=== PATIENT | male | born 1955 | race Caucasian/White ===

== ENCOUNTER 2018-11-25 11:02 | Inpatient (IN) | payer OTHER ==
[~2018-11-25] VITALS: Ht 185.4 cm; Wt 99.6 kg
--- NOTE | ~2018-11-25 | P ---
[facility] [place] [address] PROCEDURE REPORT Name: SHELLY HARVEY Room #: 246-P [facility] IN M.R.#: [id number] Admission: 11/25/18 Attend Phys: Albertina Perez MD Discharge: Date of : 55 Report #: [id number] THIS REPORT FOR: //name// CC: JONATHAN BILLINGS Physician staff Albertina Perez PROCEDURE: Cardioversion. PREOPERATIVE DIAGNOSIS: Atrial flutter. POSTOPERATIVE DIAGNOSIS: Atrial flutter. HISTORY OF PRESENT ILLNESS: The patient is a 62-year-old presenting to the ER with worsening shortness of breath, found to be in atrial flutter with rapid ventricular response. Attempts at rate control were unsuccessful in the ER and he developed symptomatic hypotension with systolics in the 70s. He therefore underwent emergent cardioversion. Prior to the cardioversion, an echo was performed showing EF of 20% and no effusion. DESCRIPTION OF PROCEDURE: The patient underwent informed consent. He was then sedated by the Anesthesiology service. I then performed a 150-joule synchronized cardioversion with moravian of sinus rhythm. There were no procedural complications. CONCLUSIONS: Successful emergent DC cardioversion for atrial flutter with cardiogenic shock. By: 1356 14 Quinton Pal MD /nt
--- NOTE | ~2018-11-25 | HC ---
[facility] [place] [address] CONSULTATION Name: SHELLY HARVEY Room #: 246-P [facility] IN M.R.#: [id number] Admission: 11/25/18 Attend Phys: Albertina Perez MD Discharge: Date of : 55 Report #: [id number] THIS REPORT FOR: //name// CC: JONATHAN BILLINGS Physician staff Albertina Perez ELECTROPHYSIOLOGY CONSULTATION HISTORY OF PRESENT ILLNESS: The patient is a 62-year-old with history of coronary artery disease, status post CABG, who recently saw Dr. Vasquez with increased palpitations and shortness of breath and was found to be in typical flutter. He was started on Eliquis, and his beta derek dose was increased. He called in today saying that he was feeling worse with increased fatigue and shortness of breath and also some nausea and vomiting, which is new onset. He had some labs performed in clinic the other day on Wednesday, which were within normal limits. Today, he presents to the ER and he is in typical atrial flutter with a rate in the 120s. He also has multiple laboratory abnormalities including elevated liver enzymes and acute renal failure. PAST MEDICAL HISTORY: As above. SOCIAL HISTORY: Does not smoke. FAMILY HISTORY: Noncontributory. ALLERGIES: None. MEDICATIONS: Have been reviewed and include statin, Eliquis, atenolol. REVIEW OF SYSTEMS: A 12-point review of systems was performed and was negative. PHYSICAL EXAMINATION: GENERAL: He denies fevers, chills. HEENT: Denies blurred vision or sore throat. CARDIOVASCULAR: No chest pain. PULMONARY: No productive cough. GASTROINTESTINAL: He had some nausea, vomiting and no abdominal pain. GENITOURINARY: No dysuria. MUSCULOSKELETAL: No myalgias or arthralgias. ENDOCRINE: No heat or cold intolerance. NEUROLOGIC: No focal weakness or stroke-like symptoms. PHYSICAL EXAMINATION: VITAL SIGNS: Temperature is 36.9, blood pressure 90/55, sats are 95%, pulse is in the 120s to 130s range. Respiratory rate 15. GENERAL: He is in no acute distress. [facility] [address] [place] [address] CONSULTATION Name: SHELLY HARVEY Room #: 246-P [facility] IN ..#: [id number] Admission: 11/25/18 Attend Phys: Albertina Perez MD Discharge: Date of : 55 Report #: [id number] HEENT: He has some mild scleral icterus and some mild jaundice. Oropharynx is clear. NECK: Supple, with no thyromegaly. HEART: Regular rate and rhythm with no murmurs, rubs, gallops. LUNGS: Clear to auscultation bilaterally. ABDOMEN: Soft, nontender, with no epigastric tenderness or rebound. There is no guarding. EXTREMITIES: There is no clubbing, cyanosis, edema. NEUROLOGIC: Cranial nerves 2-12 are intact. LABORATORY DATA: White count 7.7, hemoglobin 16, platelets 204. INR is 1.7. D-dimer is 10.1. Sodium 134, potassium 5.4, chloride 99, bicarbonate 20, BUN 52, creatinine 2.3, T-bilirubin is 3.3, AST 2399, ALT 2519, alkaline phosphatase 207. Troponin is negative. ProBNP is 3788. A 12-lead EKG shows typical atrial flutter. Chest x-ray shows prior sternotomy and no obvious pulmonary edema. ASSESSMENT: 1. Atrial flutter with rapid ventricular response. 2. Likely acute congestive heart failure secondary to atrial flutter. 3. Acute renal failure. 4. Acute liver failure. 5. Coronary artery disease. In summary, the patient is a 62-year-old with new onset atrial flutter with rapid ventricular response. We are somewhat limited in our options currently. His blood pressure is slightly low. We will give him some IV digoxin. Continue with beta derek therapy. If needed, we can try some diltiazem. Initially, I was thinking of amiodarone, but without liver enzymes, I do not want to exacerbate this issue. Finally, if we cannot get this under control with medications, we may need to proceed with semi-emergent cardioversion. By: 1312 1759 Quinton Pal MD /nt
[2018-11-25 11:03] VITALS: BP 95/70
[2018-11-25] MEDS ORDERED: ATENOLOL 50MG T50 M1 PO (11:18)
[2018-11-25] MEDS ORDERED: BAYER CHEWABLE81 MG PO (11:19)
[2018-11-25] MEDS ORDERED: ELIQUIS5 MG PO (11:19)
[2018-11-25] MEDS ORDERED: LIPITOR80 MG PO (11:19)
--- NOTE | 2018-11-25 11:33 | NUR ---
ATTEMPT X 2 FOR IV WITHOUT SUCESS
[2018-11-25 11:47] LABS: ABSOLUTE NEUTROPHILS 5.4 thou/uL (1.4-8.2); BASOPHILS 0.3 % (0.0-2.0); HEMATOCRIT 47.9 % (42.0-52.0); HEMOGLOBIN 16.6 gm/dL (14.0-18.0); LYMPHOCYTES 17.6 % (24.0-44.0); MCH 31.8 pg (26.0-34.0); MCHC 34.6 g/dL (28.0-37.0); MCV 91.9 fL (80.0-100.0); MONOCYTES 11.6 % (1.0-8.0); PLATELET COUNT 204 thou/uL (150-400); POLYS 70.5 % (36.0-66.0); RBC 5.21 mil/uL (4.50-6.00); RDW 14.4 % (10.5-14.5); WBC 7.7 thou/uL (4.0-11.0)
[2018-11-25 11:58] LABS: ANION GAP 15 mmol/L (7-16); BUN 52 mg/dL (7-18); CALCIUM 9.9 mg/dL (8.5-10.1); CHLORIDE 99 mmol/L (98-107); CO2 20 mmol/L (21-32); CREATININE 2.3 mg/dL (0.7-1.3); GLUCOSE 167 mg/dL (74-106); POTASSIUM 5.4 mmol/L (3.5-5.1); SODIUM 134 mmol/L (136-145)
[2018-11-25 11:59] LABS: APTT 27.2 Seconds (24.5-32.8); INR 1.7; PROTIME 17.2 Seconds (9.3-11.4)
[2018-11-25 12:09] LABS: ALBUMIN 3.9 g/dL (3.4-5.0); SGPT 2519 U/L (30-65); TOTAL BILIRUBIN 3.3 mg/dL (<0.1-1.0); TROPONIN-I <0.06 ng/mL (<0.06)
[2018-11-25 12:47] LABS: SGOT 2399 U/L (15-37)
--- NOTE | 2018-11-25 13:59 | NUR ---
1350 DR GORMAN AND ANESTHISA AT BED SIDE. PT PLACED ON LIFEPACK. 121-18-96/67 PT PLACED ON SUPPLEMENTAL O2 @2L 1355 PT CARDIOVERTED TO SR. 83-77/55 95 NC
--- NOTE | 2018-11-25 14:31 | EKG ---
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
--- NOTE | 2018-11-25 14:35 | 2DMMODE ---
[facility] [place] [address] 2 D/M-MODE ECHOCARDIOGRAM Name: SHELLY HARVEY Room #: 244-P [facility] IN ..#: [id number] Admission: 11/25/18 Attend Phys: Albertina Perez MD Discharge: Date of : 55 Date of Service: 11/25/18 1434 Report #: [id number] THIS REPORT FOR: //name// APPROVED REPORT Study performed: 11/25/2018 13:27:08 EXAM: Comprehensive 2D, Doppler, and color-flow Echocardiogram Patient Location: ER Room #: 9 Status: stat BSA: 2.20 HR: 121 bpm BP: 83/57 mmHg Rhythm: Tachycardia Other Information Study Quality: Good Indications Tachycardia Cardiomyopathy 2D Dimensions IVSd: 6.27 (7-11mm) LVDd: 54.43 mm PWd: 8.63 (7-11mm) LVDs: 49.21 (25-40mm) Aortic Root: 29.76 mm IVC: 30.00 mm Tricuspid Valve TR Peak Leopoldo.: 2.75 m/s TR Peak Gr.: 30.34 mmHg PA Pressure: 45.00 mmHg Left Ventricle Left ventricle is at the upper limits of normal. There is global hypokinesis of the left ventricle. There is normal left ventricular wall thickness. Left ventricular ejection fraction is severely decreased. LVEF is 20-25%. This study is not technically sufficient to allow evaluation of the LV diastolic function. Right Ventricle Right ventricle is at the upper limits of normal. [facility] [address] [place] [address] 2 D/M-MODE ECHOCARDIOGRAM Name: CANDICESHELLY Room #: 244-P [facility] IN .R.#: [id number] Admission: 11/25/18 Attend Phys: Albertina Perez MD Discharge: Date of : 55 Date of Service: 11/25/18 1434 Report #: [id number] Atria Left atrium is dilated. Right atrium is dilated. Aortic Valve The aortic valve is normal in structure. Trace aortic regurgitation. There is no aortic valvular stenosis. Mitral Valve The mitral valve is normal in structure. Moderate mitral regurgitation. No evidence of mitral valve stenosis. Tricuspid Valve The tricuspid valve is normal in structure. There is mild tricuspid regurgitation. Estimated PAP 45 mmHg. There is moderate pulmonary hypertension. Pulmonic Valve The pulmonary valve is normal in structure. Great Vessels The aortic root is normal in size. The inferior vena cava is dilated with no inspiratory collapse. Pericardium There is no pericardial effusion. <Conclusion> Left ventricle is at the upper limits of normal. There is normal left ventricular wall thickness. Left ventricular ejection fraction is severely decreased. Right ventricle is at the upper limits of normal. Left atrium is dilated. Right atrium is dilated. Trace aortic regurgitation. Moderate mitral regurgitation. There is mild tricuspid regurgitation. Estimated PAP 45 mmHg. There is moderate pulmonary hypertension. <ELECTRONICALLY SIGNED> By: Harrison Vasquez MD 11/25/18 1434 1434 1434 Harrison Vasquez MD /INF
--- NOTE | 2018-11-25 15:23 | NUR ---
PT ADMITTED TO ICU FROM ER. PT A/O X 4, NSR ON CARIDAC MONITOR SINCE ARRIVAL. DENIES ANY CP. BREATHING REG, SYMM, UNLABORED. REMAINS ON 2L NC AT THIS TIME. VSS. PT ADMISSION PACKET GIVEN, ASSESSMENTS PER CHART. LABS NOTED, IVF INFUSING. FAMILY UPDATED ON POC. CONSULTS CALLED PER ER MEDICAL MALPRACTICE PARALEGAL. VSS. IMPLEMENTING ORDERS THAT HAVE BEEN RECEIVED. WILL CONT TO MONITOR AND FOLLOW POC.
[2018-11-25 16:58] LABS: % SATURATION 35 % (20-39); IRON 101 ug/dL (65-175); TIBC 286 ug/dL (250-450)
[2018-11-25 18:37] LABS: URINE CLARITY HAZY; URINE COLOR YELLOW; URINE SPECIFIC GRAVITY >= 1.030 (1.005-1.035)
[2018-11-25 18:38] LABS: ICTOTEST (BILI CONFIRMATORY) Negative (Negative); URINE BILIRUBIN NEGATIVE (Negative); URINE BLOOD NEGATIVE (Negative); URINE GLUCOSE-RANDOM* NEGATIVE (Negative); URINE KETONES NEGATIVE (Negative); URINE LEUKOCYTES NEGATIVE (Negative); URINE NITRITE NEGATIVE (Negative); URINE PROTEIN (DIPSTICK) 1+ (Negative); URINE UROBILINOGEN 0.2 E.U./dl (0.2-1.0)
[2018-11-25 18:42] LABS: AMORPHOUS URATES Moderate /LPF (None Seen); HYALINE CASTS 0-3 Few /LPF (None Seen); SQUAMOUS None Seen /LPF (0-3); URINE RBC None Seen /HPF (0-2); URINE WBC 0-5 Rare /HPF (0-5)
[2018-11-25 19:13] VITALS: BP 101/74
[2018-11-25 20:13] VITALS: BP 102/77
[2018-11-25 21:06] LABS: IgG 632 mg/dL (700-1600)
[2018-11-25 21:13] VITALS: BP 102/74
[2018-11-25 22:13] VITALS: BP 98/71
[2018-11-25 23:13] VITALS: BP 103/70
[2018-11-26] VITALS (19 sets, daily range): BP systolic 102–118; BP diastolic 70–85
[2018-11-26 00:10] LABS: HAV IgM AB (ANTI-HAV IgM) Negative (Negative); HEPATITIS B SURFACE AG Negative (Negative); HEPATITIS C VIRUS AB <0.1 (0.0-0.9)
[2018-11-26 04:50] LABS: PHOSPHORUS 3.7 mg/dL (2.5-4.9)
[2018-11-26 05:07] LABS: HEMATOCRIT 44.9 % (42.0-52.0); HEMOGLOBIN 15.2 gm/dL (14.0-18.0); MCH 31.3 pg (26.0-34.0); MCHC 33.9 g/dL (28.0-37.0); MCV 92.3 fL (80.0-100.0); RBC 4.86 mil/uL (4.50-6.00); RDW 14.7 % (10.5-14.5); WBC 8.6 thou/uL (4.0-11.0)
--- NOTE | 2018-11-26 05:29 | NUR ---
NO ACUTE EVENTS OVERNIGHT, VSS, NO DISTRESS NOTED. ASSESSMENTS PER DOCUMENTATION. RR ELEVATED 24-30 AT TIMES, PT C/O SOA WHEN LYING FLAT OR WITH EXERTION. PT'S SPO2 DESATS 89-90 AT TIMES AND QUICKLY INCREASES AGAIN, MAINLY AROUND 91-94% ON 3L NC, PT DOES NOT WEAR HOME O2. ABDOMINAL US AND BLE US WERE COMPLETED LAST HS AT BEDSIDE. PT DENIES ANY PAIN THROUGHOUT THE NIGHT. PT DID VOID 350CC DARK YELLOW CONCENTRATED URINE. ADEQUATE PO INTAKE ALONG W/ IVF INFUSING. AM LABS PENDING.
[2018-11-26 06:37] LABS: ALBUMIN 3.4 g/dL (3.4-5.0); CALCIUM 8.5 mg/dL (8.5-10.1); CREATININE 1.6 mg/dL (0.7-1.3); POTASSIUM 4.4 mmol/L (3.5-5.1); TOTAL BILIRUBIN 2.2 mg/dL (<0.1-1.0); TOTAL PROTEIN 6.2 g/dL (6.4-8.2)
--- NOTE | 2018-11-26 13:35 | EKG ---
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
--- NOTE | 2018-11-26 13:46 | EKG ---
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
--- NOTE | 2018-11-26 17:32 | NUR ---
END OF SHIFT: PATIENT ALERT AND ORIENTED X4, NO COMPLAINTS OF PAIN. ON ROOM AIR. TOLERATING DIET WELL. IV LASIX ADMINISTERED WITH ADEQUATE URINE OUTPUT. UP WITH STANDBY ASSISTANCE. PATIENT AND UPDATED ON THE PLAN OF CARE. REPORT CALLED TO ONCOMING NURSE. NO SIGNS OF ACUTE DISTRESS NOTED AT THIS TIME. TRANSFERRED TO CCU.
--- NOTE | 2018-11-26 18:50 | NUR ---
ASSUMED PATIENT CARE FROM ICU AROUND 1700. PATIENT LYING IN BED, A&O. ROOM AIR. NO COMPLAINTS STATED. TOLERATING DIET. PATIENT USES CALL LIGHT APPROPRIATLY. UP WITH STAND BY ASSIST TO BATHROOM.
[2018-11-27 00:16] VITALS: BP 107/71
[2018-11-27 04:45] VITALS: BP 105/74
--- NOTE | 2018-11-27 04:52 | NUR ---
ASSUMED PT CARE AT 1900. VSS. PT A&04. ASSESSMENTS AND MEDS GIVEN ARE DOCUMENTED, NO EDEMA NOTED. PT MENTIONED OCCASSIONAL SOA EPISODES THAT WEARS OUT WHEN HE SITS UP. PT DENIES PAIN OR ANY SIGNIFICANT DISTRESS OVERNIGHT. PT IS STABLE ON FEET, HE RESTED WELL ALL NIGHT, WILL CONTIUE TO MONITOR PER POC.
[2018-11-27 05:39] LABS: HEMATOCRIT 44.6 % (42.0-52.0); HEMOGLOBIN 14.9 gm/dL (14.0-18.0); MCH 30.6 pg (26.0-34.0); MCHC 33.4 g/dL (28.0-37.0); MCV 91.5 fL (80.0-100.0); RBC 4.87 mil/uL (4.50-6.00); RDW 14.4 % (10.5-14.5); WBC 8.9 thou/uL (4.0-11.0)
[2018-11-27 05:52] LABS: INR 1.5
[2018-11-27 06:00] LABS: ALBUMIN 3.4 g/dL (3.4-5.0); CALCIUM 8.7 mg/dL (8.5-10.1); CREATININE 1.2 mg/dL (0.7-1.3); PHOSPHORUS 2.3 mg/dL (2.5-4.9); POTASSIUM 3.5 mmol/L (3.5-5.1); TOTAL BILIRUBIN 3.3 mg/dL (<0.1-1.0); TOTAL PROTEIN 6.2 g/dL (6.4-8.2)
[2018-11-27 07:55] VITALS: BP 108/73
[2018-11-27 11:55] VITALS: BP 97/67
--- NOTE | 2018-11-27 12:15 | NUR ---
ASSUMED PATIENT CARE THIS AM. PATIENT LYING IN BED, A&O. ROOM AIR. NO N/V, N/T OR PAIN STATED. PATIENT INDEPENDENT WITH STEADY GAIT IN ROOM. NO COMPLAINTS STATED. TOLERATING DIET. PATIENT UP TO SHOWER THIS AM AFTER DR ORDERS RECEIVED TO LET PATIENT SHOWER WITHOUT TELEMETRY. PLAN TO CONTINUE MEDICATION ORDERS, MONITOR INTELLIGENCE CHIEF, RECHECK LABS IN AM. PATIENT AGREES WITH PLAN OF CARE.
[2018-11-27 13:07] LABS: CERULOPLASMIN 25.9 mg/dL (16.0-31.0)
[2018-11-27 15:55] VITALS: BP 100/70
[2018-11-27 19:59] VITALS: BP 102/68
--- NOTE | 2018-11-27 23:24 | NUR ---
PT IS ALERT AND ORIENTED X 4. DENIES PAIN. STATES THAT HE IS READY TO GO HOME. TRYING TO KEEP HIMSELF OCCUPIED. THE PATIENT IS CURRENTLY IN NSR. ASSESSMENTS CHARTED. WILL CONTINUE TO MONITOR.
[2018-11-28 04:09] LABS: HEMATOCRIT 44.2 % (42.0-52.0); HEMOGLOBIN 14.9 gm/dL (14.0-18.0); MCH 30.7 pg (26.0-34.0); MCHC 33.7 g/dL (28.0-37.0); RBC 4.86 mil/uL (4.50-6.00); RDW 14.2 % (10.5-14.5); WBC 7.1 thou/uL (4.0-11.0)
[2018-11-28 04:40] LABS: ALBUMIN 3.2 g/dL (3.4-5.0); CALCIUM 8.6 mg/dL (8.5-10.1); PHOSPHORUS 2.7 mg/dL (2.5-4.9); POTASSIUM 3.7 mmol/L (3.5-5.1); TOTAL BILIRUBIN 3.9 mg/dL (<0.1-1.0); TOTAL PROTEIN 6.2 g/dL (6.4-8.2)
[2018-11-28 06:30] VITALS: BP 102/70
[2018-11-28 07:35] VITALS: BP 93/60
[2018-11-28] MEDS ORDERED: COREG6.25 MG PO (10:30)
[2018-11-28] MEDS ORDERED: K-DUR 20 MEQ T20 MEQ PO (10:30)
[2018-11-28] MEDS ORDERED: TORSEMIDE20 MG PO (10:30)
--- NOTE | 2018-11-28 12:25 | HC ---
[facility] [place] [address] CONSULTATION Name: SHELLY HARVEY Room #: 207-P [facility] IN M.R.#: [id number] Admission: 11/25/18 Attend Phys: Albertina Perez MD Discharge: Date of : 55 Report #: [id number] THIS REPORT FOR: //name// CC: JONATHAN BILLINGS Physician staff Albertina Perez DATE OF SERVICE: 11/25/2018 ATTENDING PHYSICIAN: Dr. Perez. REASON FOR CONSULTATION: Elevated creatinine. HISTORY OF PRESENT ILLNESS: A 62-year-old gentleman, 8 years ago he had coronary artery bypass done at [facility]. Otherwise, he has done reasonably well. Over the last couple of weeks, he has had progressive exertional dyspnea, possibly a little bit of leg swelling and orthopnea. This worsened 2 days ago. He saw his cushion gum applicator, Dr. Vasquez, who found him to be in atrial flutter with a heart rate in the 140s. At that time, creatinine was 1.1. His medications were adjusted, his lisinopril was stopped and beta derek was changed, he continued to do worse, came to the Emergency Room today and his creatinine was 2.3. Heart rate still in the 140s. He was hypotensive with systolic blood pressure in the 80s and he was admitted and subsequently cardioverted. He has been on Eliquis for a couple of days I should note. He has had some nausea and poor p.o. intake. CURRENT MEDICATIONS: Include atenolol 50 mg per day, Eliquis 5 mg b.i.d., previous medications included lisinopril, metoprolol, and a baby aspirin. PAST MEDICAL HISTORY: Pretty remarkable only for the previous coronary bypass surgery. No other surgical procedures. FAMILY HISTORY: Positive for hypertension in his mother, coronary artery disease with stents in father. Four siblings alive and well without cardiac disease, without diabetes and without renal disease. SOCIAL HISTORY: Remote cigarette smoker. Alcohol on the weekends, occasional ibuprofen 2 or 3 twice weekly. REVIEW OF SYSTEMS: GENERAL: He has been feeling rather poorly. EYES: His vision has been okay. ENT: Hearing okay, swallows okay. No mouth sores. ENDOCRINE: No diabetes or thyroid disease. RESPIRATORY: He has been somewhat short winded as mentioned without pleuritic pain, hemoptysis. [facility] [address] [place] [address] CONSULTATION Name: SHELLY HARVEY Room #: 207-P [facility] IN M.R.#: [id number] Admission: 11/25/18 Attend Phys: Albertina Perez MD Discharge: Date of : 55 Report #: [id number] CARDIAC: No chest pain or angina. GASTROINTESTINAL: Some nausea, no vomiting, no diarrhea. No bloody stools. GENITOURINARY: Good urinary stream. No prostate issues. No dysuria or hematuria. No renal stones. NEUROLOGIC: No seizure, syncope, stroke or evidence of neuropathy. PSYCHIATRIC: No depression or anxiety. MUSCULOSKELETAL: No arthritis except occasional back pain. PHYSICAL EXAMINATION: GENERAL: This is a reasonably well-appearing gentleman, lucid, giving a good history, seen in the ICU, sitting up in his hospital bed. SKIN: Unremarkable. SKELETAL: Shows him to be well developed, well nourished. HEENT: Extraocular movements are full. No scleral icterus. Hearing and vision intact. Mucous membranes moist. Tongue, buccal mucosa benign. NECK: Supple, no carotid bruits, no lymphadenopathy, no JVD. CHEST: Shows scanty crackles at the right base. HEART: Regular, but a bit tachycardic in the mid 90s. ABDOMEN: Soft and nontender, without bruits, masses or organomegaly. EXTREMITIES: Show no peripheral edema. Peripheral pulses are slightly diminished. NEUROLOGIC: Grossly intact. LABORATORY DATA: Shows hemoglobin of 16.6, white count of 7.7 and platelets is 204. Sodium 134, potassium 5.4, chloride 99, bicarbonate 20, creatinine 2.3, BUN 52, AST and ALT are greater than 2000 each, alkaline phosphatase 207, bilirubin 3.3. ASSESSMENT: 1. Elevated creatinine. This is almost certainly prerenal. Of course, acute tubular necrosis from the hypotension is also possible. Currently, volume status seems to be reasonably good. Hopefully, after the cardioversion, with the IV fluids, we will start to see some urine output. I will check urine sodium and creatinine and urinalysis for completeness. He also will get a renal sonogram for completeness. 2. Atrial flutter, now cardioverted. 3. Decreased left ventricular ejection fraction, some of this could be related to the tachyarrhythmias as well as the previous bypass surgery. 4. History of coronary bypass surgery in 2010. 5. Elevated transaminases. Again, a passive congestion due to the heart failure certainly most likely etiology here and we will certainly follow this patient carefully. <ELECTRONICALLY SIGNED> By: Rudi Ulloa MD 11/28/18 1225 1704 0236 Rudi Ulloa MD /nt
[2018-11-28 13:02] VITALS: BP 96/60
--- NOTE | 2018-11-28 13:22 | NUR ---
ASSUMED CARE OF PT AT 0700. PT A&OX4, UP AD JAKE. PT HAD SLIGHTLY LOW BLOOD PRESSURE AND DR. LANDAVERDE AWARE AND STATED NO MED CHANGE (WHILE ROUNDING ON PT THIS AM). PT WAS SINUS RHYTHM ON TELEMETRY. PT AND SPOUSE COMMUNICATED UNDERSTANDING OF ALL DISCHARGE ORDERS/MEDS AND FOLLOWUP APPTS. PT HAD IV AND TELEMETRY REMOVED BY P 3 ARMAMENT/ORDNANCE IMA TECHNICIAN. PT STATED HE HAD ALL BELONGINGS. VOLUNTEER TRANSPORT TOOK PT TO EXIT VIA WHEELCHAIR.
[2018-11-28 15:06] LABS: ANA INTERPRETATION Negative (Negative)
== END 2018-11-28 13:30 | disposition home or self-care (01) | DRG 441 ==
LOC: ER 11:02 → 2N 12:24 → ICU 12:24 → EROBS 12:24 → ICU 14:21 → 2N 11-26 16:44 → ENTRNSPT 11-28 13:14 → EDTRNSPTSTS 11-28 13:17 → 2N 11-28 13:30
PROVIDERS: Hospitalist; Internal Medicine Nephrology; Nurse Practitioner; Physician Assistant; ADMIT Internal Medicine
PROC: 5A2204Z Restoration of Cardiac Rhythm, Single (ICD-10-PCS; principal; 2018-11-25)
DX: K72.00 Acute and subacute hepatic failure without coma (principal); I50.21 Acute systolic (congestive) heart failure; N17.9 Acute kidney failure, unspecified; E87.1 Hypo-osmolality and hyponatremia; I48.3 Typical atrial flutter; I48.91 Unspecified atrial fibrillation; I25.10 Atherosclerotic heart disease of native coronary artery without angina pectoris; E78.00 Pure hypercholesterolemia, unspecified; I95.9 Hypotension, unspecified; E86.1 Hypovolemia; I34.0 Nonrheumatic mitral (valve) insufficiency; I25.5 Ischemic cardiomyopathy; E78.5 Hyperlipidemia, unspecified; Z23 Encounter for immunization; Z95.1 Presence of aortocoronary bypass graft; Z86.010 Personal history of colon polyps; Z72.89 Other problems related to lifestyle; Z87.891 Personal history of nicotine dependence; Z79.01 Long term (current) use of anticoagulants; Z79.82 Long term (current) use of aspirin; Z79.899 Other long term (current) drug therapy; Z82.49 Family history of ischemic heart disease and other diseases of the circulatory system
CPT/HCPCS: 10078; 10081; 62110; 62900

== ENCOUNTER → 2018-12-09 | Outpatient (CLI) | payer OTHER ==
[~2018-12-09] VITALS: Ht 185.4 cm; Wt 97.5 kg
[~2018-12-09] MED LIST: ATENOLOL 50MG T50 M1 PO; BAYER CHEWABLE81 MG PO; COREG6.25 MG PO; ELIQUIS5 MG PO; K-DUR 20 MEQ T20 MEQ PO; LIPITOR80 MG PO; LISINOPRIL2.5 MG PO; PACERONE 200 M200 M1 PO; TORSEMIDE20 MG PO
--- NOTE | ~2018-12-09 | P ---
[facility] [place] [address] PROCEDURE REPORT Name: SHELLY HARVEY Room #: [facility] MEL[facility]IN Álvarez#: [id number] Admission: 12/09/18 Attend Phys: Quinton Pal MD Discharge: Date of : 55 Report #: [id number] THIS REPORT FOR: //name// CC: CRICKET fontanez Harrison REYESMANDEEP Pal DATE OF SERVICE: 12/09/2018 CARDIOVERSION: PREOPERATIVE DIAGNOSIS: Atrial flutter. POSTOPERATIVE DIAGNOSIS: Atrial flutter. DESCRIPTION OF PROCEDURE: The patient underwent informed consent. He was then sedated by the Anesthesiology Service. He underwent a 50 joule synchronized cardioversion, which resulted in his atrial flutter converting to atrial fibrillation. I therefore performed a second cardioversion at 200 joules with spiritism of sinus rhythm. There were no procedural complications. CONCLUSIONS: Successful DC cardioversion with spiritism of sinus rhythm. By: 1248 2258 Quinton Pal MD /nt
[2018-12-09 09:46] VITALS: BP 106/76
[2018-12-09 09:55] LABS: ABSOLUTE NEUTROPHILS 3.7 thou/uL (1.4-8.2); BASOPHILS 1.2 % (0.0-2.0); EOSINOPHILS 2.9 % (0.0-3.0); HEMATOCRIT 49.4 % (42.0-52.0); MCH 31.3 pg (26.0-34.0); MCHC 34.5 g/dL (28.0-37.0); MCV 90.7 fL (80.0-100.0); MONOCYTES 9.3 % (1.0-8.0); PLATELET COUNT 298 thou/uL (150-400); POLYS 59.6 % (36.0-66.0); RBC 5.44 mil/uL (4.50-6.00); RDW 14.2 % (10.5-14.5); WBC 6.2 thou/uL (4.0-11.0)
[2018-12-09 10:01] LABS: CALCIUM 9.1 mg/dL (8.5-10.1); CREATININE 1.3 mg/dL (0.7-1.3); POTASSIUM 4.6 mmol/L (3.5-5.1)
[2018-12-09 10:05] LABS: APTT 31.1 Seconds (24.5-32.8); INR 1.2; PROTIME 12.9 Seconds (9.3-11.4)
[2018-12-09 10:07] LABS: ALBUMIN 3.9 g/dL (3.4-5.0); TOTAL PROTEIN 6.8 g/dL (6.4-8.2)
== END | disposition home or self-care (01) ==
LOC: CATH 09:25
PROVIDERS: Internal Medicine Cardiovascular Disease
DX: I48.92 Unspecified atrial flutter (principal); I42.9 Cardiomyopathy, unspecified; I49.9 Cardiac arrhythmia, unspecified; I10 Essential (primary) hypertension; I25.10 Atherosclerotic heart disease of native coronary artery without angina pectoris; E78.5 Hyperlipidemia, unspecified; Z87.891 Personal history of nicotine dependence; Z82.49 Family history of ischemic heart disease and other diseases of the circulatory system; Z95.1 Presence of aortocoronary bypass graft; Z79.01 Long term (current) use of anticoagulants; Z98.890 Other specified postprocedural states; Z79.899 Other long term (current) drug therapy; Z79.82 Long term (current) use of aspirin
CPT/HCPCS: 62110; 62900

== ENCOUNTER → 2018-12-13 | Outpatient (CLI) | payer OTHER ==
[2018-12-13 08:24] LABS: ABSOLUTE NEUTROPHILS 3.4 thou/uL (1.4-8.2); BASOPHILS 1.4 % (0.0-2.0); HEMATOCRIT 50.5 % (42.0-52.0); HEMOGLOBIN 17.4 gm/dL (14.0-18.0); MCH 31.2 pg (26.0-34.0); MCHC 34.4 g/dL (28.0-37.0); MCV 90.5 fL (80.0-100.0); PLATELET COUNT 303 thou/uL (150-400); POLYS 59.6 % (36.0-66.0); RBC 5.58 mil/uL (4.50-6.00); RDW 14.6 % (10.5-14.5); WBC 5.6 thou/uL (4.0-11.0)
[2018-12-13 08:47] LABS: CALCIUM 9.3 mg/dL (8.5-10.1); CREATININE 1.2 mg/dL (0.7-1.3); POTASSIUM 4.4 mmol/L (3.5-5.1); TOTAL BILIRUBIN 2.9 mg/dL (<0.1-1.0); TOTAL PROTEIN 7.2 g/dL (6.4-8.2)
== END ==
LOC: CAT 08:03
PROVIDERS: Internal Medicine Cardiovascular Disease
DX: I48.91 Unspecified atrial fibrillation (principal); I25.10 Atherosclerotic heart disease of native coronary artery without angina pectoris; M47.814 Spondylosis without myelopathy or radiculopathy, thoracic region

== ENCOUNTER 2018-12-19 06:46 | Observation (INO) | payer OTHER ==
[~2018-12-19] VITALS: Ht 185.4 cm; Wt 93.9 kg
[2018-12-19] VITALS (8 sets, daily range): BP systolic 96–135; BP diastolic 66–88
--- NOTE | ~2018-12-19 | P ---
[facility] [place] [address] PROCEDURE REPORT Name: SHELLY HARVEY Room #: 215-P [facility] Cora Álvarez#: [id number] Admission: 12/19/18 ������������������ Attend Phys: Quinton Pal MD Discharge: 12/20/18 ������������������ Date of : 55 Report #: [id number] THIS REPORT FOR: //name// CC: Quinton Pal PREOPERATIVE DIAGNOSES: 1. Atrial fibrillation. 2. Typical atrial flutter. POSTOPERATIVE DIAGNOSES: 1. Atrial fibrillation. 2. Typical atrial flutter. HISTORY: The patient is a 63-year-old male with history of coronary artery disease, status post CABG, recently admitted with acute congestive heart failure with a decreased ejection fraction and evidence of atrial flutter. He underwent cardioversion, but a week later, he was back and had recurrent atrial flutter. He was inserted antiarrhythmic drugs and a repeat cardioversion lasted for a few days, but then he went back into atrial fibrillation and then atrial flutter. As such, he is here for AFib and atrial flutter ablation. ANESTHESIA: The patient underwent general anesthesia with no anesthesia-related complications. PROCEDURES PERFORMED: 1. AFib ablation, CPT code 60595. 2. 3D mapping EP, CPT code 13098. 3. Intracardiac echo, CPT code 68666. 4. Second pathway ablation for typical atrial flutter, CPT code 12700. DESCRIPTION OF PROCEDURE: The patient underwent informed consent. We discussed the details of the procedure including the risks, which include but not limited to bleeding, vascular damage, cardiac perforation as well as stroke or LA. He understood these risks and is willing to proceed. The patient was brought to the EP Laboratory in fasting and nonsedated state and prepped and draped in sterile fashion. I obtained access to the bilateral femoral veins x 4. In the right femoral vein, I placed an 8 and 6-British short sheath and in the left femoral vein, I placed a 7 and 9-British short sheath using the modified Seldinger technique. At baseline, the patient was in typical atrial flutter with negative sawtooth flutter waves in the inferior leads, the ventricular cycle length of 545 milliseconds and the atrial cycle length of 270 milliseconds, the activation sequences proximal to distal along the coronary sinus. The patient was somewhat hypotensive, which is how his baseline. He did require some pressors due to his rapid rates. Therefore, I did perform a 200 joule synchronized cardioversion with baptist of sinus rhythm. Next, I placed catheters into the decapolar catheter and an ICE catheter into the right [facility] [address] [place] [address] PROCEDURE REPORT Name: SHELLY HARVEY Room #: 215-P [facility] Cora M.R.#: [id number] Admission: 12/19/18 ������������������ Attend Phys: Quinton Pal MD Discharge: 12/20/18 ������������������ Date of : 55 Report #: [id number] atrium. I created a detailed 3D geometry of the left atrium with emphasis of the 4 pulmonary veins. Next, transseptal was performed using an SL1 sheath and Edgecomb needle after the patient was systemically heparinized. Once in the left atrium, I used a Lasso catheter to create a detailed 3D voltage map of the left atrium. Next, I exchanged SL1 sheath for the cryo sheath and started isolating the veins. I performed multiple freezes in the left superior pulmonary vein, but the vein would not isolate. I therefore turned my attention to the left inferior pulmonary vein and performed two 4-minute freezes. The vein isolated during the first freeze. I then performed more of an ostial freeze to see if I could isolate the left superior pulmonary vein from this position. This third freeze was of 4 minutes' duration. I then turned my attention again to the left superior pulmonary vein and it was still connected. Therefore, I performed three additional freezes more along the roof region along the anterior and posterior aspects of the left superior pulmonary vein and this resulted in isolation of the vein. I then turned my attention to the right superior pulmonary vein and performed a 3-minute freeze followed by a 4-minute freeze. The vein isolated within 30 seconds of the second freeze. I then turned my attention to the right inferior pulmonary vein, the vein isolated during the first freeze within 175 milliseconds and this freeze was of 300-second duration. I performed one additional freeze of 180 seconds duration. Next, I created a voltage map of the left atrium post ablation and there was evidence of wide circumferential ablation of the left and right-sided veins. Ablation of the cavotricuspid isthmus dependent flutter: Next, I pulled my catheters back to the right atrium and using a ramp sheath and a POPRAGEOUS ThermoCool ablation catheter, ablation line was created at 6 o'clock along the tricuspid annulus. I created two lines and there were still evidence of block. Using CartoSound, there was a small pouch along the distal third of the isthmus. Placing my ablation catheter at this site, there was evidence of some sharp potentials here. I performed ablation at 40-50 calderon here and this would result in intermittent medial to lateral block. However, after coming off ablation, conduction would return. Therefore, I widened my ablation lesion set along this pouch and it went more medial and lateral to the pouch and then again ablated within it as well. Post-ablation, the transisthmus conduction time was now 160 milliseconds with evidence of bidirectional block. As such, the procedure was concluded. Post-ablation, the patient was in sinus rhythm with sinus cycle length of 1080 milliseconds, MO interval 190 milliseconds, QRS duration 80 milliseconds, QT interval 480 milliseconds. As such, all catheters and sheaths were pulled and hemostasis was obtained after the patient received systemic protamine. Intracardiac ultrasound was utilized to verify the absence of a pericardial effusion. CONCLUSIONS: 1. Successful AFib ablation with isolation of the 4 pulmonary veins with evidence of wide circumferential ablation. [facility] [address] [place] [address] PROCEDURE REPORT Name: SHELLY HARVEY Room #: 215-P [facility] Cora MDanaR.#: [id number] Admission: 12/19/18 ������������������ Attend Phys: Quinton Pal MD Discharge: 12/20/18 ������������������ Date of : 55 Report #: [id number] 2. Successful ablation of cavotricuspid isthmus dependent with evidence of bidirectional block. ��������������������������������������������� ���������������������������������������� By: ��������������������������������������������� 1243 0637 Quinton Pal MD /nt
[2018-12-19 07:25] LABS: BASOPHILS 0.9 % (0.0-2.0); EOSINOPHILS 2.6 % (0.0-3.0); HEMATOCRIT 50.3 % (42.0-52.0); HEMOGLOBIN 17.4 gm/dL (14.0-18.0); LYMPHOCYTES 32.7 % (24.0-44.0); MCH 31.2 pg (26.0-34.0); MCHC 34.5 g/dL (28.0-37.0); MCV 90.3 fL (80.0-100.0); MONOCYTES 10.7 % (1.0-8.0); PLATELET COUNT 229 thou/uL (150-400); POLYS 53.1 % (36.0-66.0); RBC 5.57 mil/uL (4.50-6.00); RDW 14.4 % (10.5-14.5); WBC 5.7 thou/uL (4.0-11.0)
[2018-12-19 07:36] LABS: CALCIUM 9.2 mg/dL (8.5-10.1); CREATININE 1.3 mg/dL (0.7-1.3); POTASSIUM 4.3 mmol/L (3.5-5.1)
[2018-12-19 07:37] LABS: APTT 29.2 Seconds (24.5-32.8); INR 1.2; PROTIME 12.1 Seconds (9.3-11.4)
[2018-12-19 07:41] LABS: ALBUMIN 4.1 g/dL (3.4-5.0); TOTAL BILIRUBIN 2.5 mg/dL (<0.1-1.0); TOTAL PROTEIN 7.3 g/dL (6.4-8.2)
[2018-12-19] MEDS ORDERED: LIPITOR80 MG PO (07:48)
--- NOTE | 2018-12-19 18:47 | NUR ---
PT ADMITED FROM [employer] ADMINISTRATOR. ALERT AND ORIENTED. ADMISSION HX AND ASSESSMENT COMPLETED. RIGHT AND LEFT GROIN INCISION C/D/I. NO HEMATOMA NOTED. DENIED HAVING PAIN OR DISCOMFORT. WILL CONTINUE TO MONITOR.
--- NOTE | 2018-12-20 | NUR ---
PT CARE ASSUMED APPROX 1900. PT ALERT AND ORIENTED X4. DENIES PAIN AND SOA. VSS. BEDREST COMPLETED AT 1945. GONZALES REMOVED WITHOUT ISSUE AND GAIT ASSESSED AT THAT TIME. PT HAS STEADY GAIT. BILATERAL GROIN POST ABLATION CATH SITES C/D/I. NO DISTRESS NOTED. PT CARE TO BE TRANSFERRED TO ONCOMING NURSE AT 0100.
[2018-12-20 03:59] VITALS: BP 92/63
[2018-12-20 04:00] VITALS: BP 92/63
--- NOTE | 2018-12-20 05:50 | NUR ---
ASSUMED PT CARE AT 0115 HRS. PT DENIES ANY CHEST PAIN, BL GROIN, BL FLANK PAIN THIS MORNING. BL GROIN SITES ARE CLEAN, DRY, INTACT WITHOUT REDNESS OR EDEMA. SR PER TELE NOTED. PT UP TO VOID OVERNIGHT WITH 100ML YELLOW COLORED URINE. DENIED ANY DIFFICULTY WITH URNINATION OR SENSATION OF RETENTION. CONTINUE TO MONITOR.
[2018-12-20 07:37] VITALS: BP 92/64
[2018-12-20 10:05] VITALS: BP 92/64
--- NOTE | 2018-12-20 11:07 | NUR ---
ASSESSMENT DOCUMENTED. PT ALERT AND ORIENTED. DENIED HAVING PAIN OR DISCOMFORT. RIGHT AND LEFT GROIN INCISION C/D/I. NO HEMATOMA NOTED. CMS INTACT. SEEN BY DR. LANDAVERDE. OK TO DISCHARGE PT TO HOME. DISCHARGE INSTRUCTIONS GIVEN TO PT. PT VERBERLIZE UNDERSTANDING. PT LEFT THE FACILITY ACCOMPANIED BY THE .
== END 2018-12-20 11:00 | disposition home or self-care (01) ==
LOC: CATH 06:46 → 2N 16:35 → ENTRNSPT 12-20 10:53 → EDTRNSPTSTS 12-20 10:56 → 2N 12-20 11:00
PROVIDERS: ADMIT Internal Medicine Cardiovascular Disease
DX: I48.91 Unspecified atrial fibrillation (principal); I48.3 Typical atrial flutter; I42.0 Dilated cardiomyopathy; I50.9 Heart failure, unspecified; I25.10 Atherosclerotic heart disease of native coronary artery without angina pectoris; Z95.1 Presence of aortocoronary bypass graft; Z79.01 Long term (current) use of anticoagulants; Z79.82 Long term (current) use of aspirin; Z79.899 Other long term (current) drug therapy
CPT/HCPCS: 62110; 62900; 65020; 65040; 70005

== ENCOUNTER → 2019-01-19 | Outpatient (CLI) | payer OTHER ==
--- NOTE | 2019-01-19 12:01 | 2DMMODE ---
[facility] [place] [address] 2 D/M-MODE ECHOCARDIOGRAM Name: SHELLY HARVEY Erika Room #: REG [facility]#: [id number] ������������� Admission: 01/19/19 ������������� Attend Phys: Quinton Pal Discharge: ��� ������������� ��� Date of : 55 Date of Service: 01/19/19 1200 �� Report #: [id number] �������� ��������������������������������������������[id number] THIS REPORT FOR: //name// APPROVED REPORT Study performed: 01/19/2019 10:04:20 EXAM: Comprehensive 2D, Doppler, and color-flow Echocardiogram Patient Location: Echo lab Status: routine BSA: 2.18 HR: 55 bpm BP: 119/78 mmHg Rhythm: NSR Other Information Study Quality: Good Indications CAD, CABG, Atrial Flutter 2D Dimensions RVDd: 44.82 mm IVSd: 10.76 (7-11mm) LVOT Diam: 20.63 (18-24mm) LVDd: 57.80 mm PWd: 9.89 (7-11mm) Ascending Ao: 40.64 (22-36mm) LVDs: 48.17 (25-40mm) Aortic Root: 37.09 mm IVC: 17.00 mm Volumes Left Atrial Volume (Systole) Single Plane 4CH: 59.32 mL Single Plane 2CH: 80.55 mL LA ESV Index: 37.04 mL/m2 Aortic Valve AoV Peak Leopoldo.: 1.06 m/s AO Peak Gr.: 4.46 mmHg LVOT Max P.30 mmHg LVOT Max V: 0.76 m/s LALA Vmax: 2.40 cm2 Mitral Valve E/A Ratio: 3.0 MV Decel. Time: 209.85 ms MV E Max Leopoldo.: 0.74 m/s [facility] [address] [place] [address] 2 D/M-MODE ECHOCARDIOGRAM Name: SARALILLISHELLY Erika [facility] [id number] ������������� Admission: 01/19/19 ������������� Attend Phys: Quinton Pal Discharge: ��� ������������� ��� Date of : 55 Date of Service: 01/19/19 1200 �� Report #: [id number] �������� ��������������������������������������������[id number] MV A Leopoldo.: 0.25 m/s MV Max Leopoldo.: 4.66 m/s MV Mean Leopoldo.: 3.36 m/s MV PHT: 60.86 ms Pulmonary Valve PV Peak Leopoldo.: 0.84 m/s PV Peak Gr.: 2.85 mmHg Tricuspid Valve TR Peak Leopoldo.: 2.07 m/s RAP Estimate: 5.00 mmHg TR Peak Gr.: 17.12 mmHg PA Pressure: 22.00 mmHg Left Ventricle The left ventricle is normal size. There is normal left ventricular wall thickness. Left ventricular systolic function is moderate to severely decreased. LVEF is 30%. Right Ventricle The right ventricle is normal size. Right ventricle is hypokinetic. Atria Left atrium is mildly dilated. Right atrium is mildly dilated. Aortic Valve The aortic valve is normal in structure, trileaflet. No aortic regurgitation is present. There is no aortic valvular stenosis. Mitral Valve The mitral valve is normal in structure. Moderate mitral regurgitation. No evidence of mitral valve stenosis. Tricuspid Valve The tricuspid valve is normal in structure. Mild tricuspid regurgitation. Pulmonic Valve The pulmonary valve is normal in structure. Trace to mild pulmonic regurgitation. Great Vessels Aortic root is within upper limits of normal measuring 3.7 cm. The ascending aorta is mildly dilated measuring 4.1 cm. IVC is normal in [facility] [address] [place] [address] 2 D/M-MODE ECHOCARDIOGRAM Name: SHELLY HARVEY Room #: [facility].#: [id number] ������������� Admission: 01/19/19 ������������� Attend Phys: Quinton Pal Discharge: ��� ������������� ��� Date of : 55 Date of Service: 01/19/19 1200 �� Report #: [id number] �������� ��������������������������������������������[id number] size and collapses >50% with inspiration. Pericardium There is no pericardial effusion. <Conclusion> The left ventricle is normal size. The right ventricle is normal size. Left ventricular systolic function is moderate to severely decreased. LVEF is 30%. Left atrium is mildly dilated. Right atrium is mildly dilated. The aortic valve is normal in structure, trileaflet. Moderate mitral regurgitation. Mild tricuspid regurgitation. ��������������������������������������������� <ELECTRONICALLY SIGNED> ���������������������������������������� By: Harrison Vasquez MD ��������������������������������������������� 01/19/19 1200 1200 99 Harrison Vasquez MD /INF
== END ==
LOC: CV 08:11
DX: I08.1 Rheumatic disorders of both mitral and tricuspid valves (principal); I25.10 Atherosclerotic heart disease of native coronary artery without angina pectoris; I10 Essential (primary) hypertension; I48.92 Unspecified atrial flutter; I25.5 Ischemic cardiomyopathy; Z95.1 Presence of aortocoronary bypass graft

== ENCOUNTER → 2019-03-15 | Outpatient (CLI) | payer OTHER ==
--- NOTE | 2019-03-15 10:55 | 2DMMODE ---
[facility] [place] [address] 2 D/M-MODE ECHOCARDIOGRAM Name: SHELLY HARVEY Erika Room #: REG [facility]#: [id number] ������������� Admission: 03/15/19 ������������� Attend Phys: Harrison Vasquez MD Discharge: ��� ������������� ��� Date of : 55 Date of Service: 03/15/19 1055 �� Report #: [id number] �������� ��������������������������������������������[id number] THIS REPORT FOR: //name// APPROVED REPORT Study performed: 03/15/2019 09:07:58 EXAM: Comprehensive 2D, Doppler, and color-flow Echocardiogram Patient Location: Out-Patient Status: routine BSA: 2.20 HR: 50 bpm BP: 106/68 mmHg Rhythm: NSR/JUAN Other Information Study Quality: Good Indications Congestive Heart Failure Cardiomyopathy HX: CABG, cardiac ablation, Aflutter. 2D Dimensions RVDd: 44.79 mm IVSd: 8.57 (7-11mm) LVOT Diam: 22.04 (18-24mm) LVDd: 51.16 mm PWd: 8.63 (7-11mm) Ascending Ao: 39.95 (22-36mm) LVDs: 38.52 (25-40mm) Aortic Root: 36.31 mm Volumes Left Atrial Volume (Systole) Single Plane 4CH: 60.30 mL Single Plane 2CH: 68.51 mL LA ESV Index: 34.00 mL/m2 Aortic Valve AoV Peak Leopoldo.: 1.33 m/s AO Peak Gr.: 7.04 mmHg LVOT Max P.16 mmHg LVOT Max V: 0.89 m/s LALA Vmax: 2.56 cm2 Mitral Valve E/A Ratio: 2.2 [facility] [place] [address] 2 D/M-MODE ECHOCARDIOGRAM Name: SHELLY HARVEY Room #: REG [facility]#: [id number] ������������� Admission: 03/15/19 ������������� Attend Phys: Harrison Vasquez MD Discharge: ��� ������������� ��� Date of : 55 Date of Service: 03/15/19 1055 �� Report #: [id number] �������� ��������������������������������������������[id number] MV Decel. Time: 353.66 ms MV E Max Leopoldo.: 0.59 m/s MV A Leopoldo.: 0.27 m/s MV PHT: 102.56 ms IVRT: 55.36 ms Pulmonary Valve PV Peak Leopoldo.: 1.10 m/s PV Peak Gr.: 4.86 mmHg Pulmonary Vein P Vein S: 0.35 m/s P Vein A: 0.22 m/s P Vein D: 0.61 m/s P Vein A Dur.: 179.9 msec P Vein S/D Ratio: 0.57 Tricuspid Valve TR Peak Leopoldo.: 2.31 m/s RAP Estimate: 5.00 mmHg TR Peak Gr.: 21.36 mmHg PA Pressure: 26.00 mmHg Left Ventricle The left ventricle is normal size. There is normal left ventricular wall thickness. Left ventricular systolic function is moderately decreased. LVEF is 40%. Right Ventricle Right ventricle is mildly dilated. Atria Left atrium is mildly dilated. Right atrium is mildly dilated. Aortic Valve The aortic valve is normal in structure. No aortic regurgitation is present. There is no aortic valvular stenosis. Mitral Valve The mitral valve is normal in structure. Mild to moderate mitral regurgitation. Tricuspid Valve The tricuspid valve is normal in structure. Mild tricuspid regurgitation. Estimated PAP is 25-30mmHg. Pulmonic Valve The pulmonary valve is normal in structure. Trace pulmonic regurgitation. [facility] [address] [place] [address] 2 D/M-MODE ECHOCARDIOGRAM Name: SHELLY HARVEY Erika Room #: REG [facility]#: [id number] ������������� Admission: 03/15/19 ������������� Attend Phys: Harrison Vasquez MD Discharge: ��� ������������� ��� Date of : 55 Date of Service: 03/15/19 1055 �� Report #: [id number] �������� ��������������������������������������������[id number] Great Vessels The aortic root is normal in size. The ascending aorta is mildly dilated. IVC is normal in size and collapses >50% with inspiration. Pericardium There is no pericardial effusion. <Conclusion> The left ventricle is normal size. There is normal left ventricular wall thickness. Left ventricular systolic function is moderately decreased. LVEF is 40%. Right ventricle is mildly dilated. Left atrium is mildly dilated. Right atrium is mildly dilated. The aortic valve is normal in structure. Mild to moderate mitral regurgitation. Mild tricuspid regurgitation. Estimated PAP is 25-30mmHg. ��������������������������������������������� <ELECTRONICALLY SIGNED> ���������������������������������������� By: Harrison Vasquez MD ��������������������������������������������� 03/15/19 1055 54 Harrison Vasquez MD /INF
== END ==
LOC: CV 08:11
DX: I08.1 Rheumatic disorders of both mitral and tricuspid valves (principal); I11.0 Hypertensive heart disease with heart failure; I50.9 Heart failure, unspecified; I25.5 Ischemic cardiomyopathy

== ENCOUNTER → 2019-03-28 | Outpatient (CLI) | payer OTHER ==
--- NOTE | ~2019-03-28 | P ---
[facility] [place] [address] PROCEDURE REPORT Name: SHELLY HARVEY Room #: REG MELVIN Álvarez#: [id number] Admission: 03/28/19 ������������������ Attend Phys: Quinton Pal MD Discharge: ������������������ Date of : 55 Report #: [id number] THIS REPORT FOR: //name// CC: FAM unknown Quinton Pal PROCEDURE: Implantable loop recorder insertion. PREOPERATIVE DIAGNOSIS: Palpitations. POSTOPERATIVE DIAGNOSIS: Palpitations. DESCRIPTION OF PROCEDURE: The patient underwent informed consent. We discussed the details of the procedure including the risks, which included but not limited to bleeding and infection. He understood these risks and was willing to proceed. The patient was then prepped and draped in a sterile fashion. I injected lidocaine at the incision site. Incision was made. The device was injected under the skin and had adequate sensing characteristics. A single layer of 3-0 suture was placed under the skin and surgical glue was placed on the outer skin layer. There were no procedure-related complications. The implanted device was a [employer]irm, model #3500, serial #[id number]. R waves were noted to be 0.68 millivolts. CONCLUSIONS: Successful implantation of an implantable loop recorder. ��������������������������������������������� ���������������������������������������� By: ��������������������������������������������� 1216 0509 Quinton Pal MD /nt
[2019-03-28 09:52] VITALS: BP 112/61
== END | disposition home or self-care (01) ==
LOC: CATH 07:00
DX: R00.2 Palpitations (principal); I48.92 Unspecified atrial flutter; N28.9 Disorder of kidney and ureter, unspecified; Z79.01 Long term (current) use of anticoagulants; Z79.899 Other long term (current) drug therapy; Z98.890 Other specified postprocedural states

== ENCOUNTER → 2019-07-31 | Outpatient (CLI) | payer OTHER ==
--- NOTE | 2019-07-31 09:25 | 2DMMODE ---
[facility] [place] [address] 2 D/M-MODE ECHOCARDIOGRAM Name: SHELLY HARVEY Room #: REG [facility]#: [id number] Admission: 07/31/19 Attend Phys: Harrison Vasquez MD Discharge: Date of : 55 Report #: [id number] THIS REPORT FOR: //name// ADDENDUM APPROVED REPORT Study performed: 07/31/2019 08:15:36 EXAM: Comprehensive 2D, Doppler, and color-flow Echocardiogram Patient Location: Out-Patient Room #: Echo lab 2 Status: routine BSA: 2.18 HR: 56 bpm BP: 108/68 mmHg Rhythm: Bradycardia Indications CAD Cardiomyopathy S^P ablation 2D Dimensions RVDd: 48.53 mm IVSd: 9.30 (7-11mm) LVOT Diam: 22.74 (18-24mm) LVDd: 51.24 mm PWd: 8.85 (7-11mm) Ascending Ao: 35.19 (22-36mm) LVDs: 37.31 (25-40mm) Aortic Root: 33.20 mm IVC: 19.00 mm Volumes Left Atrial Volume (Systole) Single Plane 4CH: 53.14 mL Single Plane 2CH: 80.63 mL LA ESV Index: 34.00 mL/m2 Aortic Valve AoV Peak Leopoldo.: 1.03 m/s AO Peak Gr.: 4.27 mmHg LVOT Max P.66 mmHg LVOT Max V: 0.82 m/s LALA Vmax: 3.20 cm2 Mitral Valve E/A Ratio: 1.6 MV Decel. Time: 288.79 ms MV E Max Leopoldo.: 0.68 m/s MV A Leopoldo.: 0.43 m/s [facility] [address] [place] [address] 2 D/M-MODE ECHOCARDIOGRAM Name: SHELLY HARVEY Erika Room #: [facility]#: [id number] Admission: 07/31/19 Attend Phys: Harrison Vasquez MD Discharge: Date of : 55 Report #: [id number] MV PHT: 83.75 ms IVRT: 96.89 ms Pulmonary Valve PV Peak Leopoldo.: 1.08 m/s PV Peak Gr.: 4.67 mmHg Pulmonary Vein P Vein S: 0.28 m/s P Vein A: 0.14 m/s P Vein D: 0.52 m/s P Vein A Dur.: 110.7 msec P Vein S/D Ratio: 0.54 Tricuspid Valve TR Peak Leopoldo.: 2.36 m/s TR Peak Gr.: 22.35 mmHg PA Pressure: 27.00 mmHg Left Ventricle The left ventricle is normal size. There is normal LV segmental wall motion. There is normal left ventricular wall thickness. Left ventricular systolic function is mild to moderately decreased. LVEF is 40-45%. Right Ventricle Right ventricle is dilated. The right ventricular systolic function is normal. Atria Left atrium is at the upper limits of normal. Right atrium is dilated. Aortic Valve The aortic valve is normal in structure. No aortic regurgitation is present. There is no aortic valvular stenosis. Mitral Valve The mitral valve is normal in structure. Mild to moderate mitral regurgitation. No evidence of mitral valve stenosis. Tricuspid Valve The tricuspid valve is normal in structure. There is trace tricuspid regurgitation. Estimated PAP 27 mmHg. Pulmonic Valve The pulmonary valve is normal in structure. Trace pulmonic regurgitation. [facility] [address] [place] [address] 2 D/M-MODE ECHOCARDIOGRAM Name: SHELLY HARVEY Room #: REG [facility]#: [id number] Admission: 07/31/19 Attend Phys: Harrison Vasquez MD Discharge: Date of : 55 Report #: [id number] Great Vessels The aortic root is normal in size. IVC is normal in size and collapses >50% with inspiration. Pericardium There is no pericardial effusion. <Conclusion> The left ventricle is normal size. There is normal left ventricular wall thickness. Left ventricular systolic function is mild to moderately decreased. Right ventricle is dilated. The right ventricular systolic function is normal. Left atrium is at the upper limits of normal. Right atrium is dilated. The aortic valve is normal in structure. Mild to moderate mitral regurgitation. There is trace tricuspid regurgitation. Estimated PAP 27 mmHg. <ELECTRONICALLY SIGNED> By: Harrison Vasquez MD 07/31/19924 4 4 Harrison Vasquez MD /INF
== END ==
LOC: CV 08:05
DX: I34.0 Nonrheumatic mitral (valve) insufficiency (principal); I25.10 Atherosclerotic heart disease of native coronary artery without angina pectoris; I42.9 Cardiomyopathy, unspecified

== ENCOUNTER → 2020-02-14 | Outpatient (CLI) | payer OTHER | LOC: SJCVCIMAG 11:13 | DX: I34.0 Nonrheumatic mitral (valve) insufficiency (principal); I42.9 Cardiomyopathy, unspecified; I25.810 Atherosclerosis of coronary artery bypass graft(s) without angina pectoris; I11.0 Hypertensive heart disease with heart failure; I50.9 Heart failure, unspecified; I48.92 Unspecified atrial flutter; R42 Dizziness and giddiness; R55 Syncope and collapse; R60.9 Edema, unspecified; E78.00 Pure hypercholesterolemia, unspecified; Z87.891 Personal history of nicotine dependence; Z95.1 Presence of aortocoronary bypass graft ==

== ENCOUNTER → 2020-08-20 | Outpatient (CLI) | payer OTHER | LOC: SJCVCIMAG 08:25 | PROVIDERS: ATTEND Internal Medicine Cardiovascular Disease | DX: I49.3 Ventricular premature depolarization (principal); R00.0 Tachycardia, unspecified; I25.5 Ischemic cardiomyopathy; I25.10 Atherosclerotic heart disease of native coronary artery without angina pectoris; I48.0 Paroxysmal atrial fibrillation; Z95.1 Presence of aortocoronary bypass graft; Z79.899 Other long term (current) drug therapy; Z87.891 Personal history of nicotine dependence ==

== ENCOUNTER → 2021-09-04 | Outpatient (CLI) | payer OTHER | LOC: SJCVCIMAG 08:49 | PROVIDERS: ATTEND Internal Medicine Cardiovascular Disease | DX: I34.0 Nonrheumatic mitral (valve) insufficiency (principal); I25.10 Atherosclerotic heart disease of native coronary artery without angina pectoris; I48.91 Unspecified atrial fibrillation; I42.9 Cardiomyopathy, unspecified; I10 Essential (primary) hypertension; Z95.1 Presence of aortocoronary bypass graft; Z79.82 Long term (current) use of aspirin; Z79.899 Other long term (current) drug therapy ==